=== PATIENT | female | born 1990 | race Hispanic/Latino ===

== ENCOUNTER 2019-01-17 17:24 | Inpatient (IN) | payer MEDICAID, OTHER, SELFPAY ==
[2019-01-17 18:22] VITALS: BMI 22.6
[2019-01-17] MEDS ORDERED: hydrALAZINE 20 MG/ML VIAL SLOW IVP PRN (20:44)
[2019-01-18] MEDS ORDERED: Acetaminophen 500 MG TAB PO PRN (00:41)
--- NOTE | 2019-01-18 01:04 | PDOC.FPROB ---
FMR OB H&P: HPI - History of Present Illness Chief Complaint: Contractions Indentification: 28 year old at 38.5 wks History of Present Illness: 28 year old at 38.5 wks presents with contractions since 3:00 AM on . Patient states she feels contractions "frequently", but they aren't very painful. Patient denies vaginal bleeding, vaginal discharge, LoF. She endorses good movement. Patient was 3cm in office recently. Primary Care Physician: Norberto FMR OB H&P: Current - Care : 4 Para: [id number] Gestational age: 38.5 wks Due date: 01/26/2019 FMR OB H&P: History - Past Medical History PMH: Denies any significant PMH - OB History OB History: No complications in current or past pregnancies. 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: Denies history of STD's or PID - Surgical History Sx History: Denies - Social History Social History: Denies tobacco, alcohol, or drug use - Family History Family History: Denies any significant FH FMR OB H&P: Medications - Current Home Medications: Medication Instructions Recorded Confirmed Type No Known 01/18/19 01/18/19 History Allergies/Adverse Reactions: Allergies Allergy/AdvReac Type Severity Reaction Status Date / Time No Known Allergies Allergy Unverified 01/18/19 05:43 FMR OB H&P: ROS - Review of Systems General: denies: fever/chills, weight/appetite/sleep changes Eyes: denies: vision changes, double vision ENT: denies: nasal congestion, sore throat Cardiovascular: denies: chest pain, palpitation, edema Respiratory: denies: cough, congestion, shortness of breath Gastrointestinal: reports: abdominal pain. denies: nausea, vomiting, diarrhea Genitourinary (Female): reports: contractions. denies: dysuria, vaginal discharge, vaginal bleeding, vaginal pressure Musculoskeletal: denies: pain, stiffness Neurologic: denies: syncope, seizures Integumentary: denies: itching, rash, lesions Hematologic/Lymphatic: denies: prolonged or excessive bleeding Psychological: denies: depression, anxiety FMR OB H&P: Vital Signs - Maternal Vital signs: Vital Signs - First Documented Pulse Resp BP 68 16 104/67 01/17/19 18:14 01/17/19 18:14 01/17/19 18:14 - Heart Tones Variability: moderate Acceleration: present Deceleration: absent Category: category 1 [place] contractions every: q5 min FMR OB H&P: Physical Exam - Physical Exam General: NAD, awake, alert and oriented HEENT: MMM, grossly normal vision, grossly normal hearing Heart: RRR, pulses present General: no respiratory distress, no wheezing Abdomen: soft, gravid, non-tender Musculoskeletal: pulses present, FROM in all four extremities Neurological: no tremor, no focal deficit Skin: no rash, capillary refill <2 seconds Lymphatic: no unusual bruising or bleeding, no purpura Psychiatric: intact recent and remote memory, good judgement and insight, normal mood and affect - Pelvic Exam SVE: /-2 FMR OB H&P: A/P - Problem List (1) Term Status: Acute Code(s): Z34.90 - ENCNTR FOR SUPRVSN OF NORMAL , UNSP, UNSP TRIMESTER Disposition: 28 year old at 38.5 wks presents with contractions TIUP - at 38.6 wks - Patient has gone from /-2 to /-2 over the course of 4 hours - Will continue to monitor for cervical change overnight, particularly given history of patient delivering in car during previous and living almost an hour away. - Angela q5-8 minutes - No complications in current - GBS neg Dispo: Will obs on L&D and continue to monitor for progression of labor. Discussion: Date/Time: 01/18/19 0100 This H&P was discussed with Dr. Joiner who agrees with the above documentation and plan. Signature: Sheron Ortiz DO PGY-3 Addendum - Attending - Attending Attestation Date/Time: 01/20/19 3148 I personally evaluated the patient and discussed the management with Dr. Ortiz I agree with the History, Examination, Assessment and Plan documented above with any addition or exceptions noted below. PT here for evaluation for labor at term. delvered in her car on the way here with her last . Pt is multiparous 4cm and angela. vital signs are wnl. Will continue to observe pt for progression of labor. fetus with cat 1 tracing.
[2019-01-18] MEDS ORDERED: Ibuprofen 800 MG TAB PO PRN (04:06)
[2019-01-18] MEDS ORDERED: NS / Oxytocin 40 units/1000ml 1,000 ML IV PRN (04:06)
[2019-01-18] MEDS ORDERED: hydrALAZINE 20 MG/ML VIAL SLOW IVP PRN ×2 (04:06→07:16)
[2019-01-18] MEDS ORDERED: Ondansetron PF 4 MG/2 ML Vial IVP PRN ×2 (04:06→07:16)
[2019-01-18] MEDS ORDERED: Promethazine HCl 25 MG/ML VIAL IM PRN ×2 (04:06→07:16)
[2019-01-18] MEDS ORDERED: Lidocaine 1% (PF) 30 ML VIAL SC PRN (04:06)
[2019-01-18] MEDS ORDERED: Lactated Ringer's 1,000 ML IV SCH (04:15)
[2019-01-18] MEDS ORDERED: Lidocaine 1% (PF) 30 ML VIAL ONE (04:48)
[2019-01-18] MEDS ORDERED: NS / Oxytocin 40 units/1000ml 1,000 ML ONE (04:48)
[2019-01-18 04:50] LABS: Hemoglobin 13.6 g/dL (12.0-16.0); Mean Corpuscular HGB CONC 33.6 g/dL (32.0-36.0); Mean Corpuscular Hemoglobin 27.8 pg (27.0-31.0); Mean Corpuscular Volume 82.7 fL (78.0-98.0); Mean Platelet Volume 9.9 fL (7.4-10.4); Platelet Count 127 thou/uL (130-400); RBC Distribution Width 12.4 % (11.5-14.5); White Blood Cell (WBC) Count 12.7 thou/uL (4.8-10.8)
[2019-01-18 05:52] LABS: Syphilis Antibody Nonreactive (Nonreactive); Syphilis Antibody Index 0.06 S/CO (<1.00 Non-Reactive)
[2019-01-18 05:53] LABS: HBSAg Index 0.14 S/CO (0-0.99); Hep B Surf Ag Non-Reactive S/CO (NonReactive)
[2019-01-18] MEDS ORDERED: diphenhydrAMINE 25 MG CAP PO PRN (07:16)
[2019-01-18] MEDS ORDERED: NS / Oxytocin 40 units/1000ml 1,000 ML IV SCH (07:16)
[2019-01-18] MEDS ORDERED: Adacel (T-DAP) 0.5 ML SYRINGE IM ONE (07:16)
[2019-01-18] MEDS ORDERED: Bisacodyl 10 MG SUPP PR PRN (07:16)
[2019-01-18] MEDS ORDERED: Benzocaine-Menthol 82.5 ML CAN TOP PRN (07:16)
[2019-01-18] MEDS ORDERED: Preparation H Ointment 28 GM TUBE PR PRN (07:16)
[2019-01-18] MEDS ORDERED: Lanolin Ointment 7 GM TUBE TOP PRN (07:16)
[2019-01-18] MEDS ORDERED: HYDROcodone/Acetaminophen 5/325 mg Tablet PO PRN ×2 (07:16)
[2019-01-18] MEDS ORDERED: Milk Of Magnesia 30 ML UDCUP PO PRN (07:16)
[2019-01-18] MEDS: Prenatal Vitamin 1 TAB PO SCH (07:38)
[2019-01-18] MEDS: Ferrous Sulfate 325 MG TAB PO SCH ×2 (08:46→17:11)
[2019-01-18] MEDS: Docusate Calcium (SURFAK) 240 MG CAP PO SCH ×2 (15:24→21:40)
[2019-01-18] MEDS: Ibuprofen 800 MG TAB PO SCH ×2 (15:25→21:40)
[2019-01-19] MEDS: Ibuprofen 800 MG TAB PO SCH ×2 (05:27→14:12)
[2019-01-19 06:35] LABS: Hemoglobin 10.3 g/dL (12.0-16.0); Mean Corpuscular HGB CONC 34.1 g/dL (32.0-36.0); Mean Corpuscular Hemoglobin 28.3 pg (27.0-31.0); Mean Corpuscular Volume 82.9 fL (78.0-98.0); Mean Platelet Volume 8.7 fL (7.4-10.4); Platelet Count 124 thou/uL (130-400); RBC Distribution Width 12.2 % (11.5-14.5); Red Blood Cell (RBC) Count 3.63 mill/uL (4.20-5.40); White Blood Cell (WBC) Count 11.7 thou/uL (4.8-10.8)
[2019-01-19 07:29] VITALS: BP 92/59; TEMP 98.2
[2019-01-19] MEDS: Ferrous Sulfate 325 MG TAB PO SCH (08:35)
[2019-01-19] MEDS: Docusate Calcium (SURFAK) 240 MG CAP PO SCH (08:35)
[2019-01-19] MEDS: Prenatal Vitamin 1 TAB PO SCH (08:36)
== END 2019-01-19 15:03 | disposition home or self-care (01) | DRG 807 ==
LOC: L&D/OP 17:24 → L&D 01-18 04:45 → 3SW 01-18 16:08
PROVIDERS: ADMIT Family Medicine; ATTEND Family Medicine
PROC: 10E0XZZ Delivery of Products of Conception, External Approach (ICD-10-PCS; principal; 2019-01-18)
PROC: 0HQ9XZZ Repair Perineum Skin, External Approach (ICD-10-PCS; 2019-01-18)
DX: O70.1 Second degree perineal laceration during delivery (principal); Z37.0 Single live birth; Z3A.38 38 weeks gestation of pregnancy
CPT/HCPCS: 36415; 85027; 86780; 86850; 86900; 86901; 87340; J2001

== ENCOUNTER 2020-10-11 08:32 | Outpatient (CLI) | payer OTHER | END 2020-10-11 08:33 | disposition home or self-care (01) | LOC: BICULT 08:32 | PROVIDERS: ATTEND Family Medicine | DX: O09.92 Supervision of high risk pregnancy, unspecified, second trimester (principal); Z3A.21 21 weeks gestation of pregnancy | CPT/HCPCS: 76805 ==